=== PATIENT | female | born 1935 | race Caucasian/White ===

== ENCOUNTER 2022-09-10 12:30 | Outpatient (CLI) | payer OTHER ==
[~2022-09-10] VITALS: Ht 170.2 cm; Wt 74.8 kg
[2022-09-10 13:23] LABS: Basophils # (auto) 0.1 10 ^3/uL (0-0.2); Basophils % (auto) 2.2 % (0.0-2.0); Eosinophils # (auto) 0.2 10 ^3/uL (0-0.8); Eosinophils % (auto) 3.5 % (0.0-7.0); Hematocrit 42.5 % (36.0-46.0); Lymphocytes # (auto) 1.7 10 ^3/uL (0.4-5.4); Lymphocytes % (auto) 30.8 % (10.0-50.0); Mean Corpuscular Hemoglobin 31.9 pg (28.0-32.0); Mean Corpuscular Volume 96.8 fL (80.0-100.0); Monocytes # (auto) 0.5 10 ^3/uL (0-1.3); Monocytes % (auto) 8.3 % (0.0-12.0); Neutrophils % (auto) 55.2 % (37.0-80.0); Nucleated Red Blood Cells % 0.3 %; Red Blood Cells 4.39 10^6/uL (4.0-5.20); Red Cell Distribution Width 13.4 % (11.8-14.3); White Blood Cell 5.5 10^3/uL (4.4-10.8)
[2022-09-10 13:30] LABS: Urine Bacteria FEW /hpf (None Seen); Urine Blood Negative /uL (Negative); Urine Budding Yeast MODERATE /hpf (None Seen); Urine Specific Gravity 1.011 (1.001-1.035); Urine WBC 38 /hpf (0 - 5); Urine WBC Clumps PRESENT /hpf (None Seen)
[2022-09-10 13:46] LABS: Potassium 4.2 mmol/L (3.5-5.1)
[2022-09-10 13:49] LABS: INR 0.97 (0.9-1.15); Partial Thromboplastin Time 28.5 sec (24.6-33.4)
[2022-09-10 13:53] LABS: BUN/Creatinine Ratio 17.4 (10.0-20.0); Bilirubin, Total 0.6 mg/dL (0.2-1.0); Calcium 9.5 mg/dL (8.5-10.1)
[2022-09-11] MEDS ORDERED: CYAN1TAB14 PO (14:52)
[2022-09-11] MEDS ORDERED: ASCO500T11 PO (14:52)
[2022-09-11] MEDS ORDERED: MAGN1CAP PO (14:52)
[2022-09-11] MEDS ORDERED: MILK1000 OR (14:52)
[2022-09-11] MEDS ORDERED: BIOT50007 PO (14:52)
[2022-09-11] MEDS ORDERED: CHOL20004 PO (14:52)
[2022-09-11] MEDS ORDERED: MULT-927 PO (14:52)
[2022-09-11] MEDS ORDERED: FURO20TA3 PO (14:52)
[2022-09-11] MEDS ORDERED: POTA10TA51 PO (14:52)
[2022-09-11] MEDS ORDERED: FLUO20TA34 PO (14:52)
[2022-09-11] MEDS ORDERED: GABA300C10 PO (14:52)
[2022-09-11] MEDS ORDERED: VITA100T3 PO (14:52)
[2022-09-11] MEDS ORDERED: OMEP20TA PO (14:52)
== END 2022-09-10 12:47 | disposition home or self-care (01) ==
LOC: LAB 12:30 → SUR 09-13 09:15 → EDSTATUS 09-13 11:45
PROVIDERS: ATTEND Urology
DX: Z01.812 Encounter for preprocedural laboratory examination (principal); N39.41 Urge incontinence; Z20.822 Contact with and (suspected) exposure to COVID-19; Z98.890 Other specified postprocedural states
CPT/HCPCS: 36415; 80053; 81001; 85025; 85610; 85730; 87086; 87088; 87186; U0003

== ENCOUNTER → 2022-09-18 | Outpatient (CLI) | payer OTHER ==
[~2022-09-18] MED LIST: ASCO500T11 PO; BIOT50007 PO; CHOL20004 PO; CYAN1TAB14 PO; FLUO20TA34 PO; FURO20TA3 PO; GABA300C10 PO; MAGN1CAP PO; MILK1000 OR; MULT-927 PO; OMEP20TA PO; POTA10TA51 PO; VITA100T3 PO
[2022-09-18 11:26] LABS: Urine WBC None Seen /hpf (0 - 5)
[2022-09-18 15:54] LABS: Urine Bacteria FEW /hpf (None Seen); Urine Blood Negative /uL (Negative); Urine Specific Gravity 1.005 (1.001-1.035)
== END | disposition home or self-care (01) ==
LOC: LAB 11:23
PROVIDERS: ATTEND Urology
DX: N39.0 Urinary tract infection, site not specified (principal)
CPT/HCPCS: 81001; 87086

== ENCOUNTER 2022-10-18 10:41 | Day surgery (SDC) | payer OTHER ==
[2022-10-15 12:42] LABS: Urine WBC None Seen /hpf (0 - 5)
[2022-10-15 12:45] LABS: Basophils # (auto) 0.1 10 ^3/uL (0-0.2); Basophils % (auto) 1.1 % (0.0-2.0); Eosinophils # (auto) 0.1 10 ^3/uL (0-0.8); Eosinophils % (auto) 2.7 % (0.0-7.0); Hematocrit 41.4 % (36.0-46.0); Hemoglobin 13.7 g/dL (12.2-16.2); Lymphocytes # (auto) 1.7 10 ^3/uL (0.4-5.4); Lymphocytes % (auto) 35.1 % (10.0-50.0); Mean Corpuscular Hemoglobin 31.6 pg (28.0-32.0); Mean Corpuscular Volume 95.9 fL (80.0-100.0); Monocytes # (auto) 0.4 10 ^3/uL (0-1.3); Monocytes % (auto) 8.3 % (0.0-12.0); Neutrophils # (auto) 2.5 10 ^3/uL (1.6-8.6); Neutrophils % (auto) 52.8 % (37.0-80.0); Nucleated Red Blood Cells % 0.1 %; Red Blood Cells 4.32 10^6/uL (4.0-5.20); Red Cell Distribution Width 13.4 % (11.8-14.3); White Blood Cell 4.7 10^3/uL (4.4-10.8)
[2022-10-15 13:02] LABS: INR 0.97 (0.9-1.15); Partial Thromboplastin Time 26.6 sec (24.6-33.4)
[2022-10-15 13:15] LABS: Urine Bacteria FEW /hpf (None Seen); Urine Blood Negative /uL (Negative); Urine Specific Gravity 1.008 (1.001-1.035)
[2022-10-15 14:55] LABS: Albumin 3.9 g/dL (3.4-5.0); Calcium 9.8 mg/dL (8.5-10.1); Potassium 4.1 mmol/L (3.5-5.1)
[2022-10-15 14:58] LABS: BUN/Creatinine Ratio 12.9 (10.0-20.0); Bilirubin, Total 0.6 mg/dL (0.2-1.0); Total Protein 8.1 g/dL (6.4-8.2)
[~2022-10-18] VITALS: Ht 170.2 cm; Wt 77.1 kg
[2022-10-18] MEDS ORDERED: GLYCOPYRROLATE 0.2 MG/ML 1ML VIAL ONE (14:13)
[2022-10-18] MEDS ORDERED: ONDANSETRON HCL 4 MG/2 ML VIAL ONE (14:13)
[2022-10-18] MEDS ORDERED: CIPROFLOXACIN 400MG/200ML 200 ML IV ONE (14:42)
[2022-10-18] MEDS ORDERED: LIDOCAINE W/ EPINEPHRINE 1% 20ML VIAL ONE (15:32)
[2022-10-18] MEDS ORDERED: CONJ ESTROGENS 0.625MG/GM VAG CRM 30GM PV ONE (15:33)
[2022-10-18] MEDS ORDERED: NEOMYCIN-BACITRACIN-POLYM 15GM TOP OINT TOP ONE (15:51)
[2022-10-18] MEDS ORDERED: NALOXONE HCL 0.4 MG/ML VIAL IV PRN (17:00)
[2022-10-18] MEDS ORDERED: FLUMAZENIL 0.1 MG/ML INJ 10ML MDV IV PRN (17:00)
[2022-10-18] MEDS ORDERED: ONDANSETRON HCL 4 MG/2 ML VIAL IV PRN (17:00)
[2022-10-18] MEDS ORDERED: fentaNYL CITRATE 100 MCG/2 ML VL IV PRN (17:00)
[2022-10-18] MEDS ORDERED: ePHEDrine SULFATE 50 MG/ML AMP IV PRN (17:00)
[2022-10-18] MEDS ORDERED: HYDROmorphone HCL 2 MG/ML VL/or syr IV PRN (17:00)
[2022-10-18] MEDS ORDERED: hydrALAZINE HCL 20 MG/ML VL IV PRN (17:00)
[2022-10-18] MEDS ORDERED: LABETALOL HCL 5 MG/ML 4ML SYRINGE IV PRN (17:00)
[2022-10-18 17:45] VITALS: BP 139/58
== END 2022-10-18 17:58 | disposition home or self-care (01) ==
LOC: EDUNIT# → SUR 10:41
PROVIDERS: ATTEND Urology
DX: N39.41 Urge incontinence (principal); N81.10 Cystocele, unspecified; N39.0 Urinary tract infection, site not specified; E66.3 Overweight; Z68.26 Body mass index [BMI] 26.0-26.9, adult; Z79.84 Long term (current) use of oral hypoglycemic drugs; Z98.890 Other specified postprocedural states; Z90.710 Acquired absence of both cervix and uterus
CPT/HCPCS: 36415; 57240; 57288; 80053; 81001; 85025; 85610; 85730; 87086; 88305; C1771; C2631; J0744; J1170; J2405

== ENCOUNTER 2023-04-18 08:03 | Day surgery (SDC) | payer OTHER ==
[2023-04-17 11:12] LABS: Urine WBC None Seen /hpf (0 - 5)
[2023-04-17 11:40] LABS: INR 1.03 (0.9-1.15); Partial Thromboplastin Time 28.2 SEC (24.5-34.5); Prothrombin Time 10.8 sec (9.3-11.8)
[2023-04-17 11:46] LABS: Basophils # (auto) 0 10 ^3/uL (0-0.2); Basophils % (auto) 0.4 % (0.0-2.0); Eosinophils # (auto) 0.2 10 ^3/uL (0-0.8); Eosinophils % (auto) 3.5 % (0.0-7.0); Hematocrit 37.9 % (36.0-46.0); Hemoglobin 12.8 g/dL (12.2-16.2); Lymphocytes # (auto) 1.6 10 ^3/uL (0.4-5.4); Lymphocytes % (auto) 31.3 % (10.0-50.0); Mean Corpuscular Hemoglobin 31.5 pg (28.0-32.0); Mean Corpuscular Hgb Conc. 33.7 g/dL (32.0-36.0); Mean Corpuscular Volume 93.5 fL (80.0-100.0); Monocytes # (auto) 0.4 10 ^3/uL (0-1.3); Monocytes % (auto) 8.5 % (0.0-12.0); Neutrophils # (auto) 2.8 10 ^3/uL (1.6-8.6); Neutrophils % (auto) 56.3 % (37.0-80.0); Red Blood Cells 4.05 10^6/uL (4.0-5.20); Red Cell Distribution Width 13.7 % (11.8-14.3)
[2023-04-17 12:05] LABS: Urine Bacteria NONE SEEN /hpf (None Seen); Urine Blood Negative /uL (Negative); Urine Clarity Clear (Clear); Urine Protein, UAD Negative (Negative); Urine Specific Gravity 1.006 (1.001-1.035); Urine Urobilinogen Normal (Negative)
[2023-04-17 12:07] LABS: Alanine Aminotransferase 23 U/L (7-40); Albumin 4.3 g/dL (3.2-4.8); Alkaline Phosphatase 200 U/L (46-116); Anion Gap 6 (5-15); Aspartate Aminotransferase 39 U/L (13-40); BUN/Creatinine Ratio 13.3 (10.0-20.0); Bilirubin, Total 0.4 mg/dL (0.2-1.0); Blood Urea Nitrogen 11 mg/dL (9-23); Calcium 9.5 mg/dL (8.5-10.1); Carbon Dioxide 30 mmol/L (20-30); Chloride 102 mmol/L (98-107); Glucose 95 mg/dL (74-106); Potassium 4.3 mmol/L (3.5-5.1); Sodium 138 mmol/L (136-145); Total Protein 7.4 g/dL (5.7-8.2); Urine Color Straw (Yellow)
[~2023-04-18] VITALS: Ht 170.2 cm; Wt 70.3 kg
[~2023-04-18 08:03] MED LIST changes: +BIOT1TAB2 PO; -BIOT50007 PO; -FLUO20TA34 PO; +FLUO20TA36 PO; +GABA-1250 PO; -GABA300C10 PO; -MILK1000 OR
[2023-04-18] MEDS ORDERED: cefTRIAXone 1GM/50ML D5W 50 ML IV ONE (09:09)
[2023-04-18] MEDS ORDERED: PROPOFOL 10 MG/ML 20 ML IV ONE (09:34)
[2023-04-18] MEDS ORDERED: fentaNYL CITRATE 100 MCG/2 ML VL ONE (09:34)
[2023-04-18] MEDS ORDERED: ONDANSETRON HCL 4 MG/2 ML VIAL IV PRN (09:45)
[2023-04-18] MEDS ORDERED: HYDROmorphone HCL 2 MG/ML VL/or syr IV PRN (09:45)
[2023-04-18] MEDS ORDERED: MEPERIDINE HCL (25 MG/ML) 1ML VIAL IV PRN (09:45)
[2023-04-18] MEDS ORDERED: DexAMETHasone SOD PHOS 10MG/1ML VIAL INJ ONE (10:07)
[2023-04-18] MEDS ORDERED: ONDANSETRON HCL 4 MG/2 ML VIAL ONE (10:07)
[2023-04-18] MEDS ORDERED: IOHEXOL 300 MG/ML 100ML BOTTLE IJ ONE (10:17)
[2023-04-18 10:36] VITALS: PULSE 92; RESP 11; TEMP 97.1; O2SAT 99
[2023-04-18 11:36] VITALS: BP 124/57; PULSE 59; RESP 18; O2SAT 96
== END 2023-04-18 11:44 | disposition home or self-care (01) ==
LOC: SUR 08:03
PROVIDERS: ATTEND Urology
DX: N36.42 Intrinsic sphincter deficiency (ISD) (principal); N39.3 Stress incontinence (female) (male); Z90.710 Acquired absence of both cervix and uterus
CPT/HCPCS: 36415; 51715; 72170; 76000; 80053; 81001; 85025; 85610; 85730; 87086; J0696; J1100; J2405; J2704; J3010; L8606; Q9967